=== PATIENT | female | born 1955 | race African-American/Black ===

== ENCOUNTER 2017-11-14 12:10 | Emergency (ER) | payer MEDICAID ==
[~2017-11-14] VITALS: Ht 162.6 cm; Wt 90.7 kg
[2017-11-14] MEDS ORDERED: HYDROcodone-ACET 10/325MG TAB PO ONE (12:30)
[2017-11-14 13:31] LABS: Basophils # (auto) 0.1 uL; Basophils % (auto) 0.7 % (0.0-2.0); Eosinophils # (auto) 0.1 uL; Eosinophils % (auto) 1.4 % (0.0-7.0); Hematocrit 42.7 % (36.0-46.0); Hemoglobin 13.8 g/dL (12.2-16.2); Lymphocytes # (auto) 1.3 uL; Lymphocytes % (auto) 18.4 % (10.0-50.0); Mean Corpuscular Hemoglobin 29.3 pg (28.0-32.0); Mean Corpuscular Hgb Conc. 32.5 g/dL (32.0-36.0); Mean Corpuscular Volume 90.1 fL (80.0-100.0); Monocytes # (auto) 0.5 uL; Monocytes % (auto) 7.7 % (0.0-12.0); Neutrophils # (auto) 5.1 uL; Neutrophils % (auto) 71.8 % (37.0-80.0); Platelet Count (auto) 222 10^3/uL (140-450); Red Blood Cells 4.73 10^6/uL (4.0-5.20); White Blood Cell 7.1 10^3/uL (4.4-10.8)
[2017-11-14 13:45] LABS: INR 0.94 (0.9-1.15); Partial Thromboplastin Time 30.7 sec (23.78-33.04); Prothrombin Time 10.1 sec (9.27-12.13)
[2017-11-14 13:48] LABS: Alanine Aminotransferase 32 U/L (13-56); Albumin 3.8 g/dL (3.4-5.0); Anion Gap 8 (5-15); Aspartate Aminotransferase 19 U/L (15-37); BUN/Creatinine Ratio 10.4; Blood Urea Nitrogen 11 mg/dL (7-18); Calcium 8.9 mg/dL (8.5-10.1); Carbon Dioxide 26 mmol/L (21-32); Chloride 109 mmol/L (98-107); GFR African American 67 mL/min; GFR Non-African American 56 mL/min; Glucose 88 mg/dL (74-106); Potassium 3.9 mmol/L (3.5-5.1); Sodium 143 mmol/L (136-145)
[2017-11-14 13:53] LABS: Alkaline Phosphatase 110 U/L (45-117); Bilirubin, Total 0.4 mg/dL (0.2-1.0); Total Protein 7.5 g/dL (6.4-8.2)
[2017-11-14 14:34] VITALS: BP 149/77
[2017-11-14 15:14] LABS: Urine Bacteria NONE SEEN /hpf (None Seen); Urine Blood TRACE /uL (Negative); Urine WBC 103 /hpf (0 - 5)
== END 2017-11-14 14:57 | disposition home or self-care (01) ==
LOC: ER 12:10 → EDBD 12:10 → ER 14:57
DX: R04.0 Epistaxis (principal); I10 Essential (primary) hypertension; N39.0 Urinary tract infection, site not specified; R51 Headache; Z88.6 Allergy status to analgesic agent; Z90.710 Acquired absence of both cervix and uterus
CPT/HCPCS: 36415; 70450; 71045; 80053; 81001; 81002; 84484; 85025; 85610; 85730